=== PATIENT | female | born 1970 | race Two or more races ===

== ENCOUNTER → 2023-03-19 13:09 | Outpatient (BNVA) | payer OTHER, SELFPAY | PROVIDERS: PCP Physician Assistant Medical; Visit Provider Internal Medicine Nephrology | DX: N17.9 Acute kidney failure, unspecified (principal) | CPT/HCPCS: 99202 ==

== ENCOUNTER 2023-03-19 13:17 | Outpatient (AMB) | payer OTHER, SELFPAY ==
[2023-03-19 14:18] VITALS: BP 122/70; PULSE 68; O2SAT 100; BMI 50.3
--- NOTE | 2023-03-19 14:18 | HO.NEPHOV_ITS ---
HPI HPI Comments History of Present Illness Details I had the privilege of seeing Diana in consultation for her BRAYDON. She has obesity and had undergone to interventions, last being in summer of this year. She is not a diabetic but hypertensive. She had been on multiple medications including CHANTAL-inhibitor. She has lost tremendous amount of weight. Her serum creatinine was 0.9 in August 2021. It had gone up to 1.2 in March 2022. In January of this year it went up to 2.4 and the following month it was 3.0. She has been having diarrhea, even though not watery for the last 6 months. She was taking CHANTAL-inhibitor at that time. Her urine output apparently is normal. She has no hematuria, flank pain or nephrolithiasis. She takes Topamax as well as PPI and chlorthalidone. She has no dizziness, chest pain, shortness of breath, proximal nocturnal dyspnea, orthopnea, pedal edema, nausea or vomiting. She used to take nonsteroidal anti-inflammatory medications but has not taken any over the last 6 months. She denies coronary artery disease, congestive heart failure, carotid stenosis, CVA, CINDY or PAD. She has no new skin rashes, photosensitivity, epistaxis, hematemesis or melena. Her CHANTAL- inhibitor has been discontinued over the last many weeks due to her higher serum creatinine. [facility] Medical History (Updated 03/19/23 @ 14:50 by Wesley Sterling MD) Sleep related hypoxia Severe obesity Seasonal allergies Obstructive sleep apnea Hypertension Depression Chronic osteoarthritis Anxiety Surgical History (Updated 03/19/23 @ 13:32 by Chely Rios MA) H/O section History of tubal ligation Family History (Updated 03/19/23 @ 13:33 by Chely Rios MA) Mother Hypertension Osteoporosis Maternal Grandfather Prostate cancer Social History (Updated 03/19/23 @ 13:32 by Chely Rios MA) Alcohol intake: never Patient Tobacco Use Status: Never used Tobacco Vital Signs 03/19/23 14:18 Height 5 ft 2 in Weight 275 lb 4 oz BMI 50.3 BP 122/70 Blood Pressure Location Lt brachial Position Sitting Pulse 68 Pulse Source Pulse Oximeter Pulse Oximetry (%) 100 Oxygen Delivery Method Room Air Physical Exam Vital Signs: Last Vital Signs Pulse 68 03/19/23 14:18 BP 122/70 03/19/23 14:18 Pulse Ox 100 03/19/23 14:18 Oxygen Delivery Method Room Air 03/19/23 14:18 BMI result Body Mass Index 50.3 Const General: comfortable and no acute distress Orientation/consciousness: patient oriented x3 HEENT Head: Yes normocephalic Mouth: Normal oral and palatal mucosa present Eyes EOM: EOMs intact bilaterally Neck Neck: Yes supple Resp Auscultation: clear to auscultation bilaterally Cardio Jugular venous distension: no JVD Rate: regular rate GI Palpation (GI): Soft to palpation Auscultation: normal bowel sounds General: Yes no CVA tenderness Back/Spine/Pelvis Back: no CVA tenderness Skin General skin exam: no rashes or lesions noted Neuro General: patient oriented x3 and moves all extremities Extrem General: Yes no pedal edema Assessment & Plan Assessment & Plan (1) BRAYDON (acute kidney injury): Code(s): N17.9 - Acute kidney failure, unspecified Plan Diana has had BRAYDON most likely due to tubular injury. Her serum creatinine was 0.9 in August of 2021 but was 1.2 in March of 2022. She had been having steady rise in serum creatinine without any major symptoms. She has episodes of data diarrhea over the last 6 months and she has been taking CHANTAL-inhibitor that time. He may very well be possible that she had altered autoregulation of the kidney with the development of tubular injury. She has no nausea, vomiting or symptoms of heart failure. She has been on PPI as well as chlorthalidone. Her CHANTAL- inhibitor has been discontinued after the high recent serum creatinine. I discontinued her chlorthalidone. Even though she is on Topamax, she denies nephrolithiasis. She denies any other systemic symptoms. I ordered a renal ultrasound along with extensive blood work. She may have to come off PPI. If her serum creatinine does not settle down, she will need a renal biopsy. I did not make any other medication changes today. [employer] Vacuum Tester services were used. All her questions and concerns were addressed. Time spent retrieving data, patient encounter and documentation 47 minutes. Follow-up given in a week time. Orders: Orders Complement C4 Today N17.9 - Acute kidney failure, unspecified Electrolytes Today N17.9 - Acute kidney failure, unspecified Calcium Today N17.9 - Acute kidney failure, unspecified Blood Urea Nitrogen Today N17.9 - Acute kidney failure, unspecified Hepatitis B Surface Antibody Today N17.9 - Acute kidney failure, unspecified Hepatitis B Core Antibody Today N17.9 - Acute kidney failure, unspecified Hepatitis C Antibody Reflex Today N17.9 - Acute kidney failure, unspecified Phosphorus Today N17.9 - Acute kidney failure, unspecified US renal BI Today N17.9 - Acute kidney failure, unspecified Complement C3 Today N17.9 - Acute kidney failure, unspecified Immunofixation Pnl, Serum Today N17.9 - Acute kidney failure, unspecified Phospholipase A2 Receptor Pnl Today N17.9 - Acute kidney failure, unspecified ANCA Vasculitides Today N17.9 - Acute kidney failure, unspecified Anti Glomerular Basement Memb Today N17.9 - Acute kidney failure, unspecified Creatinine Today N17.9 - Acute kidney failure, unspecified Hepatitis B Surface Antigen Today N17.9 - Acute kidney failure, unspecified HIV Ab/Ag Today N17.9 - Acute kidney failure, unspecified Coding Level of Care Code New Pt Level 4 (46055) Diagnoses BRAYDON (acute kidney injury) N17.9 Results Reviewed Nephrology Results: No Data to Display
== END 2023-03-19 14:55 | disposition home or self-care (01) ==
PROVIDERS: PCP Physician Assistant Medical; Visit Provider Internal Medicine Nephrology
DX: N17.9 Acute kidney failure, unspecified (principal)
CPT/HCPCS: 99204

== ENCOUNTER 2023-03-20 09:52 | Outpatient (REF) | payer OTHER, SELFPAY ==
--- NOTE | ~2023-03-20 | US_ITS ---
EXAMINATION: US RETROPERITONEAL LIMITED (RENAL ONLY) CLINICAL INFORMATION: Acute kidney failure.. COMPARISON: None available. TECHNIQUE: Routine grayscale imaging of kidneys was performed. FINDINGS: RIGHT KIDNEY: 9.9 x 2.7 x 4.1 cm (SAG x AP x TRV). The kidney is normal in size, contour, and echogenicity. Renal cortical thickness is normal. No calculi or focal parenchymal lesions. No hydronephrosis. LEFT KIDNEY: 10.5 x 5.9 x 5.4 cm (SAG x AP x TRV). The kidney is normal in size, contour, and echogenicity. Renal cortical thickness is normal. No calculi or focal parenchymal lesions. No hydronephrosis. US/US renal BI IMPRESSION: Unremarkable renal ultrasound.
== END 2023-03-20 09:53 | disposition home or self-care (01) ==
LOC: HO.HMGCX 09:52
PROVIDERS: Visit Provider Internal Medicine Nephrology
DX: N17.9 Acute kidney failure, unspecified (principal)
CPT/HCPCS: 76775

== ENCOUNTER 2023-03-26 09:25 | Outpatient (AMB) | payer OTHER, SELFPAY ==
--- NOTE | 2023-03-26 09:28 | HO.NEPHOV ---
HPI HPI Comments History of Present Illness Details I had the privilege of seeing Diana in follow up of for her BRAYDON. She has obesity and had undergone to interventions, last being in summer of this year. She is not a diabetic but hypertensive. She had been on multiple medications including CHANTAL-inhibitor. She has lost tremendous amount of weight. Her serum creatinine was 0.9 in August 2021. It had gone up to 1.2 in March 2022. In January of this year it went up to 2.4 and the following month it was 3.0. She has been having diarrhea, even though not watery for the last 6 months. She was taking CHANTAL-inhibitor at that time. Her urine output apparently is normal. She has no hematuria, flank pain or nephrolithiasis. She takes Topamax as well as PPI and chlorthalidone. She has no dizziness, chest pain, shortness of breath, proximal nocturnal dyspnea, orthopnea, pedal edema, nausea or vomiting. She used to take nonsteroidal anti-inflammatory medications but has not taken any over the last 6 months. She denies coronary artery disease, congestive heart failure, carotid stenosis, CVA, CINDY or PAD. She has no new skin rashes, photosensitivity, epistaxis, hematemesis or melena. Her CHANTAL-inhibitor has been discontinued over the last many weeks due to her higher serum creatinine. Her serum creatinine is better now [facility] Medical History (Updated 03/19/23 @ 14:50 by Wesley Sterling MD) Sleep related hypoxia Severe obesity Seasonal allergies Obstructive sleep apnea Hypertension Depression Chronic osteoarthritis Anxiety Surgical History H/O section History of tubal ligation Family History Mother Hypertension Osteoporosis Maternal Grandfather Prostate cancer Social History Alcohol intake: never Patient Tobacco Use Status: Never used Tobacco Vital Signs 03/26/23 09:36 Height 5 ft 2 in Weight 271 lb 4 oz BMI 49.6 BP 122/72 Blood Pressure Location Lt brachial Position Sitting Pulse 56 Pulse Source Pulse Oximeter Pulse Oximetry (%) 98 Oxygen Delivery Method Room Air Physical Exam Vital Signs: Last Vital Signs Pulse 56 03/26/23 09:36 BP 122/72 03/26/23 09:36 Pulse Ox 98 03/26/23 09:36 Oxygen Delivery Method Room Air 03/26/23 09:36 BMI result Body Mass Index 49.6 Const General: comfortable and no acute distress Orientation/consciousness: patient oriented x3 HEENT Head: Yes normocephalic Mouth: Normal oral and palatal mucosa present Eyes EOM: EOMs intact bilaterally Neck Neck: Yes supple Resp Auscultation: clear to auscultation bilaterally Cardio Jugular venous distension: no JVD Rate: regular rate GI Palpation (GI): Soft to palpation Auscultation: normal bowel sounds General: Yes no CVA tenderness Back/Spine/Pelvis Back: no CVA tenderness Skin General skin exam: no rashes or lesions noted Neuro General: patient oriented x3 and moves all extremities Extrem General: Yes no pedal edema Assessment & Plan Assessment & Plan (1) BRAYDON (acute kidney injury): Code(s): N17.9 - Acute kidney failure, unspecified Plan Diana has had BRAYDON most likely due to tubular injury which is improving. Her serum creatinine was 0.9 in August of 2021 but was 1.2 in March of 2022. She had been having steady rise in serum creatinine without any major symptoms. She has episodes of diarrhea over the last 6 months and she had been taking CHANTAL-inhibitor that time. She may very well be possible that she had altered autoregulation of the kidney with the development of tubular injury. She has no nausea, vomiting or symptoms of heart failure. She has been on PPI as well as chlorthalidone. Her CHANTAL-inhibitor has been discontinued after the high recent serum creatinine. I discontinued her chlorthalidone at the last visit. Even though she is on Topamax, she denies nephrolithiasis. She denies any other systemic symptoms. Her renal ultrasound was unremarkable. She had extensive blood work, some of them are still pending. She may have to come off PPI. If her serum creatinine does not settle down, she will need a renal biopsy. I did not make any other medication changes today. [employer] Representative services were used. All her questions and concerns were addressed. Follow-up given Orders: Orders Protein Creatinine Ratio, Ur Today N17.9 - Acute kidney failure, unspecified Blood Urea Nitrogen Today N17.9 - Acute kidney failure, unspecified Calcium Today N17.9 - Acute kidney failure, unspecified UA and rflx microscopic Today N17.9 - Acute kidney failure, unspecified Electrolytes Today N17.9 - Acute kidney failure, unspecified Creatinine Today N17.9 - Acute kidney failure, unspecified Coding Level of Care Code Est Pt Level 3 (35433) Diagnoses BRAYDON (acute kidney injury) N17.9 Results Reviewed Nephrology Results: Renal US 03/20/23
[2023-03-26 09:36] VITALS: BP 122/72; PULSE 56; O2SAT 98; BMI 49.6
== END 2023-03-26 09:50 | disposition home or self-care (01) ==
PROVIDERS: PCP Physician Assistant Medical; Visit Provider Internal Medicine Nephrology
DX: N17.9 Acute kidney failure, unspecified (principal)
CPT/HCPCS: 99213

== ENCOUNTER → 2023-03-26 09:25 | Outpatient (BNVA) | payer OTHER, SELFPAY | PROVIDERS: PCP Physician Assistant Medical; Visit Provider Internal Medicine Nephrology | DX: N17.9 Acute kidney failure, unspecified (principal) | CPT/HCPCS: 99212 ==

== ENCOUNTER 2023-05-09 15:38 | Outpatient (REF) | payer OTHER, SELFPAY ==
[2023-05-09 17:51] LABS: Appearance Urine Cloudy; Color Urine Yellow; Glucose Urine UA Negative (Negative); Leukocyte Esterase Urine Negative (Negative); Nitrite Urine Negative (Negative); Specific Gravity - Urine 1.015 (1.005-1.025); Urine Blood Negative (Negative); Urine Ketones Negative (Negative); Urine Protein Negative (Neg-Trace)
[2023-05-09 17:57] LABS: Creatinine Urine 128.25 mg/dL; Total Protein Urine Random 13 mg/dL (<12)
[2023-05-09 17:58] LABS: Anion Gap 12 (12-20); Blood Urea Nitrogen 16 mg/dL (9-16); Calcium 9.4 mg/dL (8.4-10.2); Carbon Dioxide 26 mmol/L (22-29); Chloride 106 mmol/L (96-108); Estimated Glomerular Filt Rate 46; Sodium 141 mmol/L (135-145)
== END 2023-05-09 15:39 | disposition home or self-care (01) ==
LOC: HO.HKASLDS 15:38
PROVIDERS: Visit Provider Internal Medicine Nephrology
DX: N17.9 Acute kidney failure, unspecified (principal)
CPT/HCPCS: 36415; 80051; 81003; 82310; 82565; 82570; 84156; 84520

== ENCOUNTER 2023-05-15 10:07 | Outpatient (AMB) | payer OTHER, SELFPAY ==
[2023-05-15 10:11] VITALS: BP 128/76; PULSE 60; O2SAT 99; BMI 48.7
--- NOTE | 2023-05-15 10:11 | A.OFFVIS_ITS ---
Intake Vital Signs 05/15/23 10:11 Height 5 ft 2 in Weight 266 lb 4 oz BMI 48.7 BP 128/76 Blood Pressure Location Lt brachial Position Sitting Pulse 60 Pulse Source Pulse Oximeter Pulse Oximetry (%) 99 Oxygen Delivery Method Room Air Intake Visit Reasons: 6w follow up/ Confirmed Data Center Technician Required: Yes Data Center Technician Language: Teacher Of [employer] Name: Kurtis([id number]) Allergies diphenhydramine [Benadryl] Allergy (Unknown, Verified 05/15/23 10:18) SOB From BENADRYL Adverse Reaction (Severe, Uncoded 05/15/23 10:18) AGITATION HPI HPI Comments History of Present Illness Details I had the privilege of seeing Diana in follow up of for her BRAYDON. She has obesity and had undergone to interventions, last being in summer of this year. She is not a diabetic but hypertensive. She had been on multiple medications including CHANTAL-inhibitor. She has lost tremendous amount of weight. Her serum creatinine was 0.9 in August 2021. It had gone up to 1.2 in March 2022. In January of this year it went up to 2.4 and the following month it was 3.0. She had been having diarrhea, even though not watery for the last 6 months. She was taking CHANTAL-inhibitor at that time. Her urine output apparently is normal. She has no hematuria, flank pain or nephrolithiasis. She has no dizziness, chest pain, shortness of breath, proximal nocturnal dyspnea, orthopnea, pedal edema, nausea or vomiting. She used to take nonsteroidal anti- inflammatory medications but has not taken any over the last 6 months. She denies coronary artery disease, congestive heart failure, carotid stenosis, CVA, CINDY or PAD. She has no new skin rashes, photosensitivity, epistaxis, hematemesis or melena. Her CHANTAL-inhibitor has been discontinued due to her higher serum creatinine. Her serum creatinine is better now. She had edema and was given diuretics. Her repeat lab work showed hypokalemia and was given potassium replacement. She feels well. [facility] Medical History (Updated 05/15/23 @ 11:50 by Wesley Sterling MD) Sleep related hypoxia Severe obesity Seasonal allergies Obstructive sleep apnea Hypertension Depression Chronic osteoarthritis Anxiety Surgical History H/O section History of tubal ligation Family History Mother Hypertension Osteoporosis Maternal Grandfather Prostate cancer Social History Alcohol intake: never Patient Tobacco Use Status: Never used Tobacco Physical Exam Vital Signs: Last Vital Signs Pulse 60 05/15/23 10:11 BP 128/76 05/15/23 10:11 Pulse Ox 99 05/15/23 10:11 Oxygen Delivery Method Room Air 05/15/23 10:11 BMI result Body Mass Index 48.7 Const General: comfortable and no acute distress Orientation/consciousness: patient oriented x3 HEENT Head: Yes normocephalic Mouth: Normal oral and palatal mucosa present Eyes EOM: EOMs intact bilaterally Neck Neck: Yes supple Resp Auscultation: clear to auscultation bilaterally Cardio Jugular venous distension: no JVD Rate: regular rate GI Palpation (GI): Soft to palpation Auscultation: normal bowel sounds General: Yes no CVA tenderness Back/Spine/Pelvis Back: no CVA tenderness Skin General skin exam: no rashes or lesions noted Neuro General: patient oriented x3 and moves all extremities Assessment & Plan Assessment & Plan (1) BRAYDON (acute kidney injury): Code(s): N17.9 - Acute kidney failure, unspecified (2) Hypertension: Code(s): I10 - Essential (primary) hypertension Qualifiers: Hypertension type: primary hypertension Qualified Code(s): I10 - Essential (primary) hypertension Plan Diana has had BRAYDON most likely due to tubular injury which has improved and is stable. Her serum creatinine was 0.9 in August of 2021 but was 1.2 in March of 2022. She had been having steady rise in serum creatinine without any major symptoms. She has episodes of diarrhea over the last 6 months and she had been taking CHANTAL-inhibitor that time. She may very well be possible that she had altered autoregulation of the kidney with the development of tubular injury. She has no nausea, vomiting or symptoms of heart failure. Her CHANTAL-inhibitor has been discontinued after the high recent serum creatinine. Even though she is on Topamax, she denies nephrolithiasis. She denies any other systemic symptoms. Her renal ultrasound was unremarkable. She had edema and took diuretics. Her edema is better. She had hypokalemia and potassium replacement was given. She has trace of edema now which may be from her amlodipine. If her serum creatinine does not settle down, she will need a renal biopsy. I will consider switching her from amlodipine if her edema persists. I did not make any other medication changes today. Data Center Technician services were used. All her questions and concerns were addressed. Follow-up given Orders: Orders Creatinine Today I10 - Essential (primary) hypertension, N17.9 - Acute kidney failure, unspecified Electrolytes Today I10 - Essential (primary) hypertension, N17.9 - Acute kidney failure, unspecified Protein Creatinine Ratio, Ur Today I10 - Essential (primary) hypertension, N17.9 - Acute kidney failure, unspecified Blood Urea Nitrogen Today I10 - Essential (primary) hypertension, N17.9 - Acute kidney failure, unspecified Coding Level of Care Code Est Pt Level 3 (48196) Diagnoses BRAYDON (acute kidney injury) N17.9 Primary hypertension I10 Hypertension type: primary hypertension
== END 2023-05-15 10:39 | disposition home or self-care (01) ==
PROVIDERS: PCP Physician Assistant Medical; Visit Provider Internal Medicine Nephrology
DX: N17.9 Acute kidney failure, unspecified (principal); I10 Essential (primary) hypertension
CPT/HCPCS: 99213

== ENCOUNTER → 2023-05-15 10:07 | Outpatient (BNVA) | payer OTHER, SELFPAY | PROVIDERS: PCP Physician Assistant Medical; Visit Provider Internal Medicine Nephrology | DX: N17.9 Acute kidney failure, unspecified (principal); I10 Essential (primary) hypertension | CPT/HCPCS: 99212 ==

== ENCOUNTER 2023-06-05 10:57 | Outpatient (REF) | payer OTHER, SELFPAY ==
[2023-06-05 15:46] LABS: Anion Gap 11 (12-20); Blood Urea Nitrogen 10 mg/dL (9-16); Carbon Dioxide 27 mmol/L (22-29); Chloride 105 mmol/L (96-108); Estimated Glomerular Filt Rate 47; Sodium 140 mmol/L (135-145)
== END 2023-06-05 10:58 | disposition home or self-care (01) ==
LOC: HO.HKASLDS 10:57
PROVIDERS: Visit Provider Internal Medicine Nephrology
DX: I10 Essential (primary) hypertension (principal); N17.9 Acute kidney failure, unspecified
CPT/HCPCS: 36415; 80051; 82565; 84520

== ENCOUNTER 2023-07-03 10:48 | Outpatient (AMB) | payer OTHER, SELFPAY ==
[2023-07-03 11:21] VITALS: BP 122/82; BMI 48.0
--- NOTE | 2023-07-03 11:21 | HO.NEPHOV_ITS ---
HPI HPI Comments History of Present Illness Details I had the privilege of seeing Diana in follow up of for her CKD. She has obesity and had undergone to interventions, last being in summer of this year. She is not a diabetic but hypertensive. She had been on multiple medications including CHANTAL-inhibitor. She has lost tremendous amount of weight. Her serum creatinine was 0.9 in August 2021. It had gone up to 1.2 in March 2022. In January of this year it went up to 2.4 and the following month it was 3.0. She had been having diarrhea, even though not watery for the last 6 months. She was taking CHANTAL-inhibitor at that time. Her urine output apparently is normal. She has no hematuria, flank pain or nephrolithiasis. She has no dizziness, chest pain, shortness of breath, proximal nocturnal dyspnea, orthopnea, pedal edema, nausea or vomiting. She used to take nonsteroidal anti- inflammatory medications but has not taken any over the last 6 months. She denies coronary artery disease, congestive heart failure, carotid stenosis, CVA, CINDY or PAD. She has no new skin rashes, photosensitivity, epistaxis, hematemesis or melena. Her CHANTAL-inhibitor has been discontinued due to her higher serum creatinine. Her serum creatinine is better now. She had edema and was given diuretics. Her repeat lab work showed hypokalemia and was given potassium replacement. She feels well. [facility] Medical History (Updated 07/03/23 @ 11:30 by Wesley Sterling MD) Sleep related hypoxia Severe obesity Seasonal allergies Obstructive sleep apnea Hypertension Depression Chronic osteoarthritis Anxiety Surgical History H/O section History of tubal ligation Family History Mother Hypertension Osteoporosis Maternal Grandfather Prostate cancer Social History Alcohol intake: never Patient Tobacco Use Status: Never used Tobacco Vital Signs 07/03/23 11:21 Height 5 ft 2 in Weight 262 lb 8 oz BMI 48.0 BP 122/82 Blood Pressure Location Rt radial Position Sitting Physical Exam Vital Signs: Last Vital Signs BP 122/82 07/03/23 11:21 BMI result Body Mass Index 48.0 Const General: comfortable and no acute distress Orientation/consciousness: patient oriented x3 HEENT Head: Yes normocephalic Mouth: Normal oral and palatal mucosa present Eyes EOM: EOMs intact bilaterally Neck Neck: Yes supple Resp Auscultation: clear to auscultation bilaterally Cardio Jugular venous distension: no JVD Rate: regular rate GI Palpation (GI): Soft to palpation Auscultation: normal bowel sounds General: Yes no CVA tenderness Back/Spine/Pelvis Back: no CVA tenderness Skin General skin exam: no rashes or lesions noted Neuro General: patient oriented x3 and moves all extremities Extrem General: Yes no pedal edema Assessment & Plan Assessment & Plan (1) Hypertension: Code(s): I10 - Essential (primary) hypertension Qualifiers: Hypertension type: primary hypertension Qualified Code(s): I10 - Essential (primary) hypertension (2) CKD (chronic kidney disease) stage 3, GFR 30-59 ml/min: Code(s): N18.30 - Chronic kidney disease, stage 3 unspecified Qualifiers: Chronic kidney disease stage 3 subtype: stage 3a (GFR 45-59) Qualified Code(s): N18.31 - Chronic kidney disease, stage 3a Jony Ortiz has had BRAYDON most likely due to tubular injury which has improved and is stable. Her serum creatinine was 0.9 in August of 2021 but was 1.2 in March of 2022. Thats her new baseline now. She had been having steady rise in serum creatinine without any major symptoms. She has no nausea, vomiting or symptoms of heart failure. Her CHANTAL-inhibitor has been discontinued after the high recent serum creatinine. Even though she is on Topamax, she denies nephrolithiasis. She denies any other systemic symptoms. Her renal ultrasound was unremarkable. She had edema and took diuretics. Her edema has resolved. She had hypokalemia and potassium replacement was given. I did not make any other medication changes today. Energy Assistant services were used. All her questions and concerns were addressed. Follow-up given Orders: Orders Electrolytes Today I10 - Essential (primary) hypertension, N18.30 - Chronic kidney disease, stage 3 unspecified Creatinine Today I10 - Essential (primary) hypertension, N18.30 - Chronic kidney disease, stage 3 unspecified Blood Urea Nitrogen Today I10 - Essential (primary) hypertension, N18.30 - Chronic kidney disease, stage 3 unspecified Coding Level of Care Code Est Pt Level 3 (23439) Diagnoses Primary hypertension I10 Hypertension type: primary hypertension Stage 3a chronic kidney disease N18.31 Chronic kidney disease stage 3 subtype: stage 3a (GFR 45-59) Results Reviewed Nephrology Results: Sodium 140 mmol/L (135-145) 06/05/23 Potassium 3.0 mmol/L (3.3-5.1) L 06/05/23 Chloride 105 mmol/L (96-108) 06/05/23 Carbon Dioxide 27 mmol/L (22-29) 06/05/23 BUN 10 mg/dL (9-16) 06/05/23 Creatinine 1.20 mg/dL (0.5-1.4) 06/05/23 Calcium 9.4 mg/dL (8.4-10.2) 05/09/23 Urine Protein Negative mg/dL (Neg-Trace) 05/09/23 Urine Creatinine 128.25 mg/dL 05/09/23 Protein/Creatinin Ratio 0.10 (<0.2) 05/09/23 Renal US 03/20/23
== END 2023-07-03 11:39 | disposition home or self-care (01) ==
PROVIDERS: PCP Physician Assistant Medical; Visit Provider Internal Medicine Nephrology
DX: I10 Essential (primary) hypertension (principal); N18.31 Chronic kidney disease, stage 3a
CPT/HCPCS: 99213

== ENCOUNTER → 2023-07-03 10:48 | Outpatient (BNVA) | payer OTHER, SELFPAY | PROVIDERS: PCP Physician Assistant Medical; Visit Provider Internal Medicine Nephrology | DX: I12.9 Hypertensive chronic kidney disease with stage 1 through stage 4 chronic kidney disease, or unspecified chronic kidney disease (principal); N18.31 Chronic kidney disease, stage 3a | CPT/HCPCS: 99212 ==

== ENCOUNTER 2023-09-26 10:48 | Outpatient (REF) | payer OTHER, SELFPAY ==
[2023-09-26 18:31] LABS: Anion Gap 10 (12-20); Blood Urea Nitrogen 17 mg/dL (9-16); Calcium 9.8 mg/dL (8.4-10.2); Carbon Dioxide 25 mmol/L (22-29); Chloride 111 mmol/L (96-108); Estimated Glomerular Filt Rate 43; Phosphorus 3.4 mg/dL (2.7-4.5); Potassium 3.8 mmol/L (3.3-5.1); Sodium 142 mmol/L (135-145)
[2023-09-26 18:56] LABS: Protein/Creatinine Ratio, Ur 0.06 (<0.2); Total Protein Urine Random 14 mg/dL (<12)
[2023-09-27 03:54] LABS: HBc Num1 0.16 S/CO (0.00-0.79); HBsAGNum1 0.26 S/CO (0.00-0.99); HIV AB/AG Nonreactive (Nonreactive); HIV Num 1 0.05 S/CO (0.00-0.99); Hepatitis B Core Antibody Nonreactive (Nonreactive); Hepatitis B Surface Antigen Negative (Negative); ~HepC Num1 0.22 S/CO (0.00-0.79); ~Hepatitis B Surface Antibody NONREACTIVE (Nonreactive); ~Hepatitis C Antibody Nonreactive (Nonreactive)
[2023-09-27 21:13] LABS: Anti Glomerular Basement Memb <1.0 AI; Myeloperoxidase Antibody <1.0 AI; Proteinase 3 PR3 Antibodies <1.0 AI
[2023-09-27 22:18] LABS: Complement C3 129 mg/dL (83-193)
[2023-10-01 22:08] LABS: IgA 240 mg/dL (47-310); IgG 1488 mg/dL (600-1640); IgM 107 mg/dL (50-300)
[2023-10-04 21:44] LABS: Phospholipase A2 IgG ELISA <4 RU/mL; Phospholipase A2 IgG IFA NEGATIVE (NEGATIVE)
== END 2023-09-26 10:49 | disposition home or self-care (01) ==
LOC: HO.HKASLDS 10:48
PROVIDERS: Visit Provider Internal Medicine Nephrology
DX: N17.9 Acute kidney failure, unspecified (principal); I12.9 Hypertensive chronic kidney disease with stage 1 through stage 4 chronic kidney disease, or unspecified chronic kidney disease; N18.30 Chronic kidney disease, stage 3 unspecified
CPT/HCPCS: 36415; 80051; 82310; 82565; 82570; 82784; 83520; 84100; 84156; 84520; 86021; 86160; 86255; 86334; 86704; 86706; 86803; 87340; 87389

== ENCOUNTER 2023-10-02 10:27 | Outpatient (AMB) | payer OTHER, SELFPAY ==
[2023-10-02 10:47] VITALS: BP 116/70; PULSE 50; O2SAT 100; BMI 43.8
--- NOTE | 2023-10-02 10:47 | HO.NEPHOV ---
Vital Signs 10/02/23 10:47 Height 5 ft 2 in Weight 239 lb 6 oz BMI 43.8 BP 116/70 Blood Pressure Location Lt brachial Position Sitting Pulse 50 Pulse Source Pulse Oximeter Pulse Oximetry (%) 100 Oxygen Delivery Method Room Air Intake Visit Reasons: 3 mon follow up/ Conf Deputy Coroner Investigator Required: Yes Deputy Coroner Investigator Services: Deputy Coroner Investigator Present Deputy Coroner Investigator Name: Ritika [id number] Accompanied by: Self / Same As Patient Allergies diphenhydramine [Benadryl] Allergy (Unknown, Verified 10/02/23 10:50) SOB From BENADRYL Adverse Reaction (Severe, Uncoded 05/15/23 10:18) AGITATION HPI Comments Details: I had the privilege of seeing Diana in follow up of for her CKD. She has obesity and had undergone to interventions. She is not a diabetic but hypertensive. She has lost tremendous amount of weight. Her serum creatinine was 0.9 in August 2021. It had gone up to 1.2 in March 2022. In January of this year it went up to 2.4 and the following month it was 3.0 which has improved to 1.3 and is stable. Her urine output apparently is normal. She has no hematuria, flank pain or nephrolithiasis. She has no dizziness, chest pain, shortness of breath, proximal nocturnal dyspnea, orthopnea, pedal edema, nausea or vomiting. She used to take nonsteroidal anti-inflammatory medications but has not taken any over the last 6 months. She denies coronary artery disease, congestive heart failure, carotid stenosis, CVA, CINDY or PAD. She has no new skin rashes, photosensitivity, epistaxis, hematemesis or melena. She feels well. [facility] Medical History (Updated 07/03/23 @ 11:30 by Wesley Sterling MD) Sleep related hypoxia Severe obesity Seasonal allergies Obstructive sleep apnea Hypertension Depression Chronic osteoarthritis Anxiety Surgical History H/O section History of tubal ligation Family History Mother Hypertension Osteoporosis Maternal Grandfather Prostate cancer Social History Alcohol intake: never Patient Tobacco Use Status: Never used Tobacco Physical Exam Vital Signs: Last Vital Signs Pulse 50 10/02/23 10:47 BP 116/70 10/02/23 10:47 Pulse Ox 100 10/02/23 10:47 Oxygen Delivery Method Room Air 10/02/23 10:47 BMI result Body Mass Index 43.8 Const General: comfortable and no acute distress Orientation/consciousness: patient oriented x3 HEENT Head: Yes normocephalic Mouth: Normal oral and palatal mucosa present Eyes EOM: EOMs intact bilaterally Neck Neck: Yes supple Resp Auscultation: clear to auscultation bilaterally Cardio Jugular venous distension: no JVD Rate: regular rate GI Palpation (GI): Soft to palpation Auscultation: normal bowel sounds General: Yes no CVA tenderness Back/Spine/Pelvis Back: no CVA tenderness Skin General skin exam: no rashes or lesions noted Neuro General: patient oriented x3 and moves all extremities Extrem General: Yes no pedal edema Results Reviewed Nephrology Results: Sodium 142 mmol/L (135-145) 09/26/23 Potassium 3.8 mmol/L (3.3-5.1) 09/26/23 Chloride 111 mmol/L (96-108) H 09/26/23 Carbon Dioxide 25 mmol/L (22-29) 09/26/23 BUN 17 mg/dL (9-16) H 09/26/23 Creatinine 1.31 mg/dL (0.5-1.4) 09/26/23 Calcium 9.8 mg/dL (8.4-10.2) 09/26/23 Phosphorus 3.4 mg/dL (2.7-4.5) 09/26/23 Urine Protein Negative mg/dL (Neg-Trace) 05/09/23 Urine Creatinine 224.66 mg/dL 09/26/23 Protein/Creatinin Ratio 0.06 (<0.2) 09/26/23 Renal US 03/20/23 Assessment & Plan Assessment & Plan (1) CKD (chronic kidney disease) stage 3, GFR 30-59 ml/min: Code(s): N18.30 - Chronic kidney disease, stage 3 unspecified Category: Medical Qualifiers: Chronic kidney disease stage 3 subtype: stage 3a (GFR 45-59) Qualified Code(s): N18.31 - Chronic kidney disease, stage 3a (2) Hypertension: Code(s): I10 - Essential (primary) hypertension Category: Medical Qualifiers: Hypertension type: primary hypertension Qualified Code(s): I10 - Essential (primary) hypertension Plan Her renal functions are stable. Her CHANTAL-inhibitor has been discontinued after the high recent serum creatinine. Even though she is on Topamax, she denies nephrolithiasis. She denies any other systemic symptoms. Her renal ultrasound was unremarkable. Her BP is at goal. I did not make any other medication changes today. Deputy Coroner Investigator services were used. All her questions and concerns were addressed. Follow-up given Coding Level of Care Code Est Pt Level 4 (25113) Diagnoses Stage 3a chronic kidney disease N18.31 Chronic kidney disease stage 3 subtype: stage 3a (GFR 45-59) Primary hypertension I10 Hypertension type: primary hypertension
== END 2023-10-02 11:04 | disposition home or self-care (01) ==
PROVIDERS: PCP Physician Assistant Medical; Visit Provider Internal Medicine Nephrology
DX: N18.31 Chronic kidney disease, stage 3a (principal); I10 Essential (primary) hypertension
CPT/HCPCS: 99214

== ENCOUNTER → 2023-10-02 10:27 | Outpatient (BNVA) | payer OTHER, SELFPAY | PROVIDERS: PCP Physician Assistant Medical; Visit Provider Internal Medicine Nephrology | DX: I10 Essential (primary) hypertension (principal); N18.31 Chronic kidney disease, stage 3a | CPT/HCPCS: 99212 ==

== ENCOUNTER 2024-01-16 14:28 | Outpatient (REF) | payer OTHER, SELFPAY ==
[2024-01-16 18:34] LABS: Anion Gap 12 (12-20); Blood Urea Nitrogen 17 mg/dL (9-16); Carbon Dioxide 27 mmol/L (22-29); Chloride 106 mmol/L (96-108); Estimated Glomerular Filt Rate 56; Potassium 4.3 mmol/L (3.3-5.1); Sodium 141 mmol/L (135-145)
== END 2024-01-16 14:29 | disposition home or self-care (01) ==
LOC: HO.HKASLDS 14:28
PROVIDERS: Visit Provider Internal Medicine Nephrology
DX: N17.9 Acute kidney failure, unspecified (principal)
CPT/HCPCS: 36415; 80051; 82565; 84520

== ENCOUNTER 2024-02-14 12:57 | Outpatient (AMB) | payer OTHER, SELFPAY ==
--- NOTE | 2024-02-14 13:33 | HO.NEPHOV_ITS ---
Vital Signs 02/14/24 13:34 Height 5 ft 2 in Weight 245 lb 2 oz BMI 44.8 BP 122/80 Blood Pressure Location Lt radial Intake Visit Reasons: 4 mon follow up- Conf Director Trading Required: Yes Director Trading Language: Warehouse Worker 2Nd Shift Services: Director Trading Present Director Trading Name: Sisi [id number] Accompanied by: Self / Same As Patient Allergies diphenhydramine [Benadryl] Allergy (Unknown, Verified 02/14/24 13:33) SOB From BENADRYL Adverse Reaction (Severe, Uncoded 05/15/23 10:18) AGITATION HPI Comments Details: Diana was seenin follow up of for her CKD. She has obesity and had undergone to interventions. She is not a diabetic but hypertensive. She has lost tremendous amount of weight. Her serum creatinine was 0.9 in August 2021. It had gone up to 1.2 in March 2022. In January of 2023 it went up to 2.4 and the following month it was 3.0 which has improved to 1.3 and is stable. Her urine output apparently is normal. She has no hematuria, flank pain or nephrolithiasis. She has no dizziness, chest pain, shortness of breath, proximal nocturnal dyspnea, orthopnea, pedal edema, nausea or vomiting. She used to take nonsteroidal anti-inflammatory medications but has not taken any over the last 6 months. She denies coronary artery disease, congestive heart failure, carotid stenosis, CVA, CINDY or PAD. She has no new skin rashes, photosensitivity, epistaxis, hematemesis or melena. She feels well. [facility] Medical History (Updated 07/03/23 @ 11:30 by Wesley Sterling MD) Sleep related hypoxia Severe obesity Seasonal allergies Obstructive sleep apnea Hypertension Depression Chronic osteoarthritis Anxiety Surgical History H/O section History of tubal ligation Family History Mother Hypertension Osteoporosis Maternal Grandfather Prostate cancer Social History Alcohol intake: never Patient Tobacco Use Status: Never used Tobacco Review of Systems Const All systems reviewed & are unremarkable except as noted in HPI and below Physical Exam Vital Signs: Last Vital Signs BP 122/80 02/14/24 13:34 BMI result Body Mass Index 44.8 Const General: comfortable and no acute distress Orientation/consciousness: patient oriented x3 HEENT Head: Yes normocephalic Mouth: Normal oral and palatal mucosa present Eyes EOM: EOMs intact bilaterally Neck Neck: Yes supple Resp Auscultation: clear to auscultation bilaterally Cardio Jugular venous distension: no JVD Rate: regular rate GI Palpation (GI): Soft to palpation Auscultation: normal bowel sounds General: Yes no CVA tenderness Back/Spine/Pelvis Back: no CVA tenderness Skin General skin exam: no rashes or lesions noted Neuro General: patient oriented x3 and moves all extremities Extrem General: Yes no pedal edema Results Reviewed Nephrology Results: Sodium 141 mmol/L (135-145) 01/16/24 Potassium 4.3 mmol/L (3.3-5.1) 01/16/24 Chloride 106 mmol/L (96-108) 01/16/24 Carbon Dioxide 27 mmol/L (22-29) 01/16/24 BUN 17 mg/dL (9-16) H 01/16/24 Creatinine 1.04 mg/dL (0.5-1.4) 01/16/24 Calcium 9.8 mg/dL (8.4-10.2) 09/26/23 Phosphorus 3.4 mg/dL (2.7-4.5) 09/26/23 Urine Protein Negative mg/dL (Neg-Trace) 05/09/23 Urine Creatinine 224.66 mg/dL 09/26/23 Protein/Creatinin Ratio 0.06 (<0.2) 09/26/23 Renal US 03/20/23 Assessment & Plan Assessment & Plan (1) CKD (chronic kidney disease) stage 3, GFR 30-59 ml/min: Code(s): N18.30 - Chronic kidney disease, stage 3 unspecified Category: Medical Qualifiers: Chronic kidney disease stage 3 subtype: stage 3a (GFR 45-59) Qualified Code(s): N18.31 - Chronic kidney disease, stage 3a (2) Hypertension: Code(s): I10 - Essential (primary) hypertension Category: Medical Qualifiers: Hypertension type: primary hypertension Qualified Code(s): I10 - Essential (primary) hypertension Plan Her renal functions are stable. Her CHANTAL-inhibitor has been discontinued in the past after she had high serum creatinine. Even though she is on Topamax, she denies nephrolithiasis. She denies any other systemic symptoms. Her renal ultrasound was unremarkable. Her BP is at goal. I did not make any other medi cation changes today. Director Trading services were used. All her questions and concerns were addressed. Follow-up given Orders: Orders Creatinine 8 Months I10 - Essential (primary) hypertension, N18.31 - Chronic kidney disease, stage 3a Blood Urea Nitrogen 8 Months I10 - Essential (primary) hypertension, N18.31 - Chronic kidney disease, stage 3a Electrolytes 8 Months I10 - Essential (primary) hypertension, N18.31 - Chronic kidney disease, stage 3a Coding Level of Care Code Est Pt Level 4 (07891) Diagnoses Stage 3a chronic kidney disease N18.31 Chronic kidney disease stage 3 subtype: stage 3a (GFR 45-59) Primary hypertension I10 Hypertension type: primary hypertension
[2024-02-14 13:34] VITALS: BP 122/80; BMI 44.8
== END 2024-02-14 13:43 | disposition home or self-care (01) ==
LOC: HO.HKAS 12:58
PROVIDERS: PCP Physician Assistant Medical; Visit Provider Internal Medicine Nephrology
DX: N18.31 Chronic kidney disease, stage 3a (principal); I10 Essential (primary) hypertension
CPT/HCPCS: 99214

== ENCOUNTER → 2024-02-14 12:57 | Outpatient (BNVA) | payer OTHER, SELFPAY | PROVIDERS: PCP Physician Assistant Medical; Visit Provider Internal Medicine Nephrology | DX: I12.9 Hypertensive chronic kidney disease with stage 1 through stage 4 chronic kidney disease, or unspecified chronic kidney disease (principal); N18.31 Chronic kidney disease, stage 3a | CPT/HCPCS: 99212 ==

== ENCOUNTER 2024-09-17 12:40 | Outpatient (REF) | payer OTHER, SELFPAY ==
--- OUTSIDE RECORDS SUMMARY | 2024-09-17 14:09 | XMS_ITS | Clinical Summary ---
Author Organization [address] [place] [address] Address [address] [place] [address] Phone Care Team Providers Care Chart Writer Name Role Phone Gurwinder Mclean MD Primary Care Provider [phone] Allergies Active Allergy Reactions Criticality Noted Date Comments Diphenhydramine Hcl 12/03/2017 Medications LISINOPRIL ORAL Take by mouth. Active loperamide (IMODIUM) 2 mg capsule Take 1 Capsule by mouth 4 times daily as needed for Diarrhea for up to 20 doses. 024 Active pantoprazole (PROTONIX) 40 mg EC tablet TAKE 1 TABLET BY MOUTH ONCE DAILY 023 Active cholecalciferol (VITAMIN D-3) 50 mcg (2,000 unit) tablet TAKE 1 TABLET BY MOUTH ONCE DAILY 023 Active WHEAT DEXTRIN ORAL Take 4 g by mouth daily. 023 Active buPROPion XL (WELLBUTRIN XL) 300 mg 24 hr tabletIndication s:Morbid (severe) obesity due to excess calories (CMS/[facility] V24, CMS/[facility] V28) TAKE 1 TABLET BY MOUTH EVERY MORNING 30 tablet 5 024 Active acetaminophen (TYLENOL 8 HOUR) 650 mg 8 hr tablet Take 2 tablets (1,300 mg total) by mouth every 8 (eight) hours if needed. for pain 024 Active albuterol 2.5 mg /3 mL (0.083 %) nebulizer solution Take 3 mL (2.5 mg total) by nebulization if needed. 024 Active amLODIPine (NORVASC) 10 mg tablet Take 1 tablet (10 mg total) by mouth 1 (one) time each day. Active Symbicort 80-4.5 mcg/actuation inhaler Inhale 2 puffs by mouth if needed. 024 Active carvediloL (COREG) 25 mg tablet Take 1 tablet (25 mg total) by mouth 2 (two) times a day with meals. Active cetirizine (ZyrTEC) 10 mg tablet Take 1 tablet (10 mg total) by mouth 1 (one) time each day. 024 Active clonazePAM (KlonoPIN) 1 mg tablet Take 1 tablet (1 mg total) by mouth 1 (one) time each day. Max Daily Amount: 1 mg 024 Active docusate sodium (COLACE) 100 mg capsule Take 1 capsule (100 mg total) by mouth if needed for constipation. 024 Active escitalopram (LEXAPRO) 20 mg tablet Take 1 tablet (20 mg total) by mouth 1 (one) time each day in the morning. Active fluconazole (DIFLUCAN) 150 mg tablet Take 1 tablet (150 mg total) by mouth 1 (one) time. 024 Active hydrOXYzine HCL (ATARAX) 50 mg tablet Take 10 mg by mouth 1 (one) time. 024 Active hydrocortisone (ANUSOL-HC) 2.5 % rectal cream Insert 2.5 Applications into the rectum 2 (two) times a day. 024 Active zinc gluconate 50 mg tabletIndication s:Postoperative malabsorption Take 1 tablet (50 mg total) by mouth 1 (one) time each day. 30 tablet 025 2025 Active semaglutide (Wegovy) 0.25 mg/0.5 mL injection penIndications:C lass 3 severe obesity due to excess calories with serious comorbidity and body mass index (BMI) of 40.0 to 44.9 in adult ([facility] V24, [facility] V28) Inject 0.25 mg under the skin every 7 (seven) days. 4 mL 1 025 Active phentermine 30 mg capsuleIndicatio ns:Class 3 severe obesity due to excess calories with serious comorbidity and body mass index (BMI) of 40.0 to 44.9 in adult ([facility] V24, [facility] V28) Take 1 capsule (30 mg total) by mouth 1 (one) time each day before breakfast. Max Daily Amount: 30 mg 30 each 2 025 2024 Discontinued phentermine 37.5 mg capsuleIndicatio ns:Class 3 severe obesity due to excess calories with serious comorbidity and body mass index (BMI) of 40.0 to 44.9 in adult ([facility] V24, [facility] V28) Take 1 capsule (37.5 mg total) by mouth 1 (one) time each day before breakfast. Max Daily Amount: 37.5 mg 30 each 025 2024 Discontinued(A lternate therapy) Active Problems Problem Noted Date Diagnosed Date NICOLAS on CPAP 01/21/2024 Depression 01/21/2024 Class 3 severe obesity due t o excess calories with body mass index (BMI) of 40.0 to 44.9 in adult ([facility] V24, [facility] V28) 01/21/2024 Intestinal malabsorption following gastrectomy 0 12/26/2018 Anxiety 09/05/2018 Asthma 09/05/2018 Hypertension 09/05/2018 Osteoarthritis 09/05/2018 Vitamin D deficiency 09/05/2018 TSH elevation 09/05/2018 Encounters Date Type Department Care Team Description 09/09/2024 8:15 AM EDT Office Visit Bariatric Surgery [address] [phone] Ricco Mathur MD Class 3 severe obesity due to excess calories with serious comorbidity and body mass index (BMI) of 40.0 to 44.9 in adult ([facility] V24, [facility] V28) (Primary Dx) 09/03/2024 Telephone Bariatric Surgery [address] [phone] Ricco Mathur MD Advice Only 07/22/2024 1:15 PM EDT Office Visit Bariatric Surgery [address] [phone] Ricco Mathur MD Class 3 severe obesity due to excess calories with serious comorbidity and body mass index (BMI) of 40.0 to 44.9 in adult ([facility] V24, [facility] V28) (Primary Dx) 07/22/2024 Telephone Bariatric Surgery - [place] [address] [place] [address] Ricco Mathur MD Prior auth (ANA) from Last 3 Months Surgical History Surgery Date Site/Laterality Comments SECTION PROCEDURE: HISTORICAL DELIVERY Medical History Medical History Date Comments NICOLAS on CPAP DX:NICOLAS on CPAP Asthma DX:Asthma Depression DX:Depression Anxiety 09/05/2018 DX:Anxiety Hypertension 09/05/2018 DX:Hypertension Osteoarthritis 09/05/2018 DX:Osteoarthriti s Vitamin D deficiency 09/05/2018 DX:Vitamin D deficiency TSH elevation 09/05/2018 DX:TSH elevation Morbid obesity with BMI of 7 0 and over, adult ([facility] V24, CMS/[facility] V28) 12/03/2017 DX:Morbid obesity wit h BMI of 70 and over, adult ([facility]) Family History Medical History Relation Name Comments No Known Problems Father No Known Problems Mother Relation Name Status Comments Father Alive Mother Alive Social History Tobacco Use Types Packs/Day Years Used Date Smoking Tobacco: Never Smokeless Tobacco: Never Alcohol Use Standard Drinks/Week Comments No 0 (1 standard drink = 0.6 oz pur e alcohol) Comments Unknown Sex and Gender Information Value Date Recorded Sex Assigned at Not on file Legal Sex Female 7:57 AM EST Gender Identity Not on file Sexual Orientation Not on file Obstetrics History Last Filed Vital Signs Vital Sign Reading Time Taken Comments Blood Pressure 148/68 09/09/2024 8:21 AM EDT Pulse 50 09/09/2024 8:21 AM EDT Temperature 36.6 ??C (97.8 ??F) 09/09/2024 8:21 AM ED T Respiratory Rate - - Oxygen Saturation - - Inhaled Oxygen Concentration - - Weight 112 kg (248 lb) 09/09/2024 8:21 AM EDT Height 160 cm (5' 3 ) 09/09/2024 8:21 AM EDT Body Mass Index 43.93 09/09/2024 8:21 AM EDT Plan of Treatment Upcoming Encounters Date Type Department Care Team (Late st Contact Info) Description 12/25/2024 8:45 AM EDT Office Visit Bariatric Surgery - [place] [address] [place] [address] Ricco Mathur MD [address] [place] [id number] Health Maintenance Due Date Last Done Comments Breast Cancer Screening 1971 Pneumococcal Vaccine: 50+ Years (1 of 2 - PCV) 1990 Pneumococcal Vaccine: Pediatrics (0 to 5 Years) and At-Risk Patients (6 to 64 Years) (1 of 2 - PCV) 1990 Cervical Cancer Screening: Pap Smear 02/04/1992 Hepatitis B Vaccines (3 of 3 - 19+ 3-dose series) 02/10/2012 12/14/2011, 08/10/2011 Colorectal Cancer Screening: Colonoscopy 03/12/2022 Depression Screening 03/12/2022 HIV Screening 03/12/2022 Hepatitis C Screening 03/12/2022 Social Influencers of Health Screening 03/12/2022 Hypertension/CHF/CAD Annual BMP Blood Test 02/20/2023 02/20/2022 COVID-19 Vaccine ( season) 2023 08/19/2021, 12/08/2020, 07/13/2020, Additional history exists Zoster Vaccines (2 of 3) 01/30/2024 12/05/2023 Cholesterol Screening (Lipid Panel) 02/20/2027 02/20/2022 DTaP,Tdap,and Td Vaccines (3 - Td or Tdap) 09/07/2027 09/06/2017, 08/10/2011 Hepatitis A Vaccines Aged Out 12/14/2011 No long er eligible based on patient's age to complete this topic Influenza Vaccine Completed 03/05/2024, , 03/20/2022, Additional history exists HIB Vaccines Aged Out No longer eligi ble based on patient's age to complete this topic HPV Vaccines Aged Out No longer eligi ble based on patient's age to complete this topic IPV Vaccines Aged Out No longer eligi ble based on patient's age to complete this topic MMR Vaccines Aged Out No longer eligi ble based on patient's age to complete this topic Meningococcal ACWY Vaccine Aged Out N o longer eligible based on patient's age to complete this topic Meningococcal B Vaccine Aged Out No l onger eligible based on patient's age to complete this topic RSV Immunization Patients Under 20 months Aged Out No longer eligible based on patient's age to complete this topic Varicella Vaccines Aged Out No longer eligible based on patient's age to complete this topic Procedures Procedure Name Priority Date/Time Associated Diagnosis Comments ANNUAL BMP BLOOD TEST Routine 02/20/2022 LIPID PANEL Routine 02/20/2022 from Last 3 Months or Most Recently Relevant to Health Maintenance Results * Annual BMP Blood Test (02/20/2022) Annual BMP Blood Test ABSTRACTED Historical Provider HEALTH MAINTENANCE Final Result * (ABNORMAL) Lipid panel (02/20/2022) LDL/HDL Ratio 4 0 - 4 Triglycerides 137 0 - 150 mg/dL Cholesterol 193 0 - 200 mg/dL HDL 50 >=40 mg/dL LDL Cholesterol 116(A) 0 - 100 mg/dL Blood Venous blood specimen / Unknown Historical Provider LAB BLOOD ORDERABLES Anne l Result from Last 3 Months or Most Recently Relevant to Health Maintenance Insurance [employer] Care Teams Chart Writer Relationship Specialty Start Date End Date Gurwinder Mclean MD [address] [place] [id number] PCP - General 06/20/18
[2024-09-17 18:26] LABS: Anion Gap 9 (12-20); Blood Urea Nitrogen 17 mg/dL (9-16); Carbon Dioxide 27 mmol/L (22-29); Chloride 109 mmol/L (96-108); Estimated Glomerular Filt Rate 53; Potassium 4.4 mmol/L (3.3-5.1); Sodium 141 mmol/L (135-145)
== END 2024-09-17 12:41 | disposition home or self-care (01) ==
LOC: HO.HKASLDS 12:40
PROVIDERS: Visit Provider Internal Medicine Nephrology
DX: I12.9 Hypertensive chronic kidney disease with stage 1 through stage 4 chronic kidney disease, or unspecified chronic kidney disease (principal); N18.31 Chronic kidney disease, stage 3a
CPT/HCPCS: 36415; 80051; 82565; 84520

== ENCOUNTER 2024-09-25 13:30 | Outpatient (AMB) | payer OTHER, SELFPAY ==
--- NOTE | 2024-09-25 13:45 | HO.NEPHOV_ITS ---
Vital Signs 09/25/24 13:49 Height 5 ft 2 in Weight 254 lb BMI 46.5 BP 134/80 Blood Pressure Location Lt radial Position Sitting Pulse 68 Pulse Source Pulse Oximeter Pulse Oximetry (%) 98 Oxygen Delivery Method Room Air Intake Visit Reasons: Follow yp 7mo-Conf Retail Loss Prevention Officer Required: Yes Retail Loss Prevention Officer Language: Automatic Car Wash Attendant Services: Retail Loss Prevention Officer Present Retail Loss Prevention Officer Name: Chata [id number] Information Interpreted: clinical only Accompanied by: Self / Same As Patient Allergies diphenhydramine (Benadryl) Allergy (Unknown, Verified 09/25/24 13:49) SOB From BENADRYL Adverse Reaction (Severe, Uncoded 05/15/23 10:18) AGITATION HPI Comments Details: Diana was seen in follow up of for her CKD. She has obesity and had undergone to interventions. She is not a diabetic but hypertensive. She has lost tremendous amount of weight. Her serum creatinine was 0.9 in August 2021. It had gone up to 1.2 in March 2022. In January of 2023 it went up to 2.4 and the following month it was 3.0 which has improved to 1.3 and is stable. Her urine output apparently is normal. She has no hematuria, flank pain or nephrolithiasis. She has no dizziness, chest pain, shortness of breath, proximal nocturnal dyspnea, orthopnea, pedal edema, nausea or vomiting. She used to take nonsteroidal anti-inflammatory medications but has not taken any over the last 6 months. She denies coronary artery disease, congestive heart failure, carotid stenosis, CVA, CINDY or PAD. She has no new skin rashes, photosensitivity, epistaxis, hematemesis or melena. She has been started on Zepbound. She feels well. [facility] Medical History (Updated 07/03/23 @ 11:30 by Wesley Sterling MD) Sleep related hypoxia Severe obesity Seasonal allergies Obstructive sleep apnea Hypertension Depression Chronic osteoarthritis Anxiety Surgical History H/O section History of tubal ligation Family History Mother Hypertension Osteoporosis Maternal Grandfather Prostate cancer Social History Alcohol intake: never Patient Tobacco Use Status: Never used Tobacco Review of Systems Const All systems reviewed & are unremarkable except as noted in HPI and below Physical Exam Const General: comfortable and no acute distress Orientation/consciousness: patient oriented x3 HEENT Head: Yes normocephalic Mouth: Normal oral and palatal mucosa present Eyes EOM: EOMs intact bilaterally Neck Neck: Yes supple Resp Auscultation: clear to auscultation bilaterally Cardio Jugular venous distension: no JVD Rate: regular rate GI Palpation (GI): Soft to palpation Auscultation: normal bowel sounds General: Yes no CVA tenderness Back/Spine/Pelvis Back: no CVA tenderness Skin General skin exam: no rashes or lesions noted Neuro General: patient oriented x3 and moves all extremities Extrem General: Yes no pedal edema Results Reviewed Nephrology Results: Sodium, (135-145) 141 mmol/L 09/17/24 Potassium, (3.3-5.1) 4.4 mmol/L 09/17/24 Chloride, (96-108) 109 mmol/L H 09/17/24 Carbon Dioxide, (22-29) 27 mmol/L 09/17/24 BUN, (9-16) 17 mg/dL H 09/17/24 Creatinine, (0.5-1.4) 1.09 mg/dL 09/17/24 Calcium, (8.4-10.2) 9.8 mg/dL 09/26/23 Phosphorus, (2.7-4.5) 3.4 mg/dL 09/26/23 Urine Protein, (Neg-Trace) Negative mg/dL 05/09/23 Urine Creatinine 224.66 mg/dL 09/26/23 Protein/Creatinin Ratio, (<0.2) 0.06 09/26/23 Renal US 03/20/23 Assessment & Plan Assessment & Plan (1) Hypertension: Code(s): I10 - Essential (primary) hypertension Category: Medical Qualifiers: Hypertension type: primary hypertension Qualified Code(s): I10 - Essential (primary) hypertension (2) CKD (chronic kidney disease) stage 3, GFR 30-59 ml/min: Code(s): N18.30 - Chronic kidney disease, stage 3 unspecified Category: Medical Qualifiers: Chronic kidney disease stage 3 subtype: stage 3a (GFR 45-59) Qualified Code(s): N18.31 - Chronic kidney disease, stage 3a Plan Her renal functions are stable. Her CHANTAL-inhibitor has been discontinued in the past after she had high serum creatinine. Even though she is on Topamax, she denies nephrolithiasis. She denies any other systemic symptoms. Her renal ultrasound was unremarkable. Her BP is at goal. We may have to back off on her BP medications if she loses weight. I did not make any other medication changes today. Retail Loss Prevention Officer services were used. All her questions and concerns were addressed. Follow-up given Orders: Orders Creatinine 6 Months I10 - Essential (primary) hypertension, N18.31 - Chronic kidney disease, stage 3a Blood Urea Nitrogen 6 Months I10 - Essential (primary) hypertension, N18.31 - Chronic kidney disease, stage 3a Electrolytes 6 Months I10 - Essential (primary) hypertension, N18.31 - Chronic kidney disease, stage 3a Coding Level of Care Code Est Pt Level 4 (32789) Diagnoses Primary hypertension I10 Hypertension type: primary hypertension Stage 3a chronic kidney disease N18.31 Chronic kidney disease stage 3 subtype: stage 3a (GFR 45-59)
[2024-09-25 13:49] VITALS: BP 134/80; PULSE 68; O2SAT 98; BMI 46.5
--- OUTSIDE RECORDS SUMMARY | 2024-09-25 14:46 | XMS_ITS | Clinical Summary ---
Author Organization [address] [place] [address] Address [address] [place] [address] Phone Care Team Providers Care Rn Radiation Name Role Phone Gurwinder Mclean MD Primary Care Provider [phone] Allergies Active Allergy Reactions Criticality Noted Date [...] s:Morbid (severe) obesity due to excess calories (CMS/[facility] V24, CMS/[facility] V28) TAKE 1 TABLET BY MOUTH EVERY [...] (BMI) of 40.0 to 44.9 in adult ([facility] V24, [facility] V28) Inject 0.25 mg under the skin every 7 (seven) days. 4 mL 1 025 Active phentermine 30 mg capsuleIndicatio ns:Class 3 severe obesity due to excess calories with serious comorbidity and body mass index (BMI) of 40.0 to 44.9 in adult ([facility] V24, CMS/[facility] V28) Take 1 capsule (30 mg total) by mouth 1 (one) time each day before breakfast. Max Daily Amount: 30 mg 30 each 2 025 2024 Discontinued phentermine 37.5 mg capsuleIndicatio ns:Class 3 severe obesity due to excess calories with serious comorbidity and body mass index (BMI) of 40.0 to 44.9 in adult ([facility] V24, [facility] V28) Take 1 capsule (37.5 mg total) by mouth 1 (one) time each day before breakfast. Max Daily Amount: 37.5 mg 30 each 025 2024 Discontinued(A lternate therapy) Active Problems Problem Noted Date Diagnosed Date NICOLAS on CPAP 01/21/2024 Depression 01/21/2024 Class 3 severe obesity due t o excess calories with body mass index (BMI) of 40.0 to 44.9 in adult ([facility] V24, [facility] V28) 01/21/2024 Intestinal malabsorption following gastrectomy 0 12/26/2018 Anxiety 09/05/2018 Asthma 09/05/2018 Hypertension 09/05/2018 Osteoarthritis 09/05/2018 Vitamin D deficiency 09/05/2018 TSH elevation 09/05/2018 Encounters Date Type Department Care Team Description 09/09/2024 8:15 AM EDT Office Visit Bariatric Surgery [address] [phone] Ricco Mathur MD Class 3 severe obesity due to excess calories with serious comorbidity and body mass index (BMI) of 40.0 to 44.9 in adult ([facility] V24, [facility] V28) (Primary Dx) 09/03/2024 Telephone Bariatric Surgery [address] [phone] Ricco Mathur MD Advice Only 07/22/2024 1:15 PM EDT Office Visit Bariatric Surgery [address] [phone] Ricco aMthur MD Class 3 severe obesity due to excess calories with serious comorbidity and body mass index (BMI) of 40.0 to 44.9 in adult ([facility] V24, [facility] V28) (Primary Dx) 07/22/2024 Telephone Bariatric Surgery - [place] 175 [facility] [address] [place] [phone] Ricco Mathur MD Prior auth (ANA) from [...] BMI of 7 0 and over, adult (CMS/[facility] V24, CMS/HCC V28) 12/03/2017 DX:Morbid obesity wit h BMI of 70 and over, adult ([facility]) Family History Medical History Relation Name Comments [...] 50 09/09/2024 8:21 AM EDT Temperature 36.6 C (97.8 F) 09/09/2024 8:21 AM EDT Respiratory Rate - - Oxygen Saturation - [...] AM EDT Office Visit Bariatric Surgery - [place] [address] [phone] Ricco Mathur MD [address] [phone] Health Maintenance Due Date Last Done Comments [...] [employer] [place] [employer] Care Teams Rn Radiation Relationship Specialty Start Date End Date Gurwinder Mclean MD [address] [place] [phone] PCP - General 06/20/18
== END 2024-09-25 13:59 | disposition home or self-care (01) ==
LOC: HO.HKAS 13:37
PROVIDERS: PCP Physician Assistant Medical; Visit Provider Internal Medicine Nephrology
DX: I10 Essential (primary) hypertension (principal); N18.31 Chronic kidney disease, stage 3a
CPT/HCPCS: 99214

== ENCOUNTER → 2024-09-25 13:30 | Outpatient (BNVA) | payer OTHER, SELFPAY | PROVIDERS: PCP Physician Assistant Medical; Visit Provider Internal Medicine Nephrology | DX: I10 Essential (primary) hypertension (principal); N18.31 Chronic kidney disease, stage 3a | CPT/HCPCS: 99212 ==

== ENCOUNTER 2025-03-25 14:19 | Outpatient (REF) | payer OTHER, SELFPAY ==
--- OUTSIDE RECORDS SUMMARY | 2025-03-25 19:09 | XMS_ITS | Clinical Summary ---
Author Organization 175 [facility] Address [address] [place] [address] Phone Care Team Providers Care Active Directory Administrator Name Role Phone Gurwinder Mclean MD Primary Care Provider [phone] Allergies Active Allergy Reactions Criticality Noted Date Comments Diphenhydramine Hcl 12/03/2017 Medications LISINOPRIL ORAL Take by mouth. Active loperamide (IMODIUM) 2 mg capsule Take 1 Capsule by mouth 4 times daily as needed for Diarrhea for up to 20 doses. 06/06/19 24 Active pantoprazole (PROTONIX) 40 mg EC tablet TAKE 1 TABLET BY MOUTH ONCE DAILY 03/09/20 23 Active cholecalciferol (VITAMIN D-3) 50 mcg (2,000 unit) tablet TAKE 1 TABLET BY MOUTH ONCE DAILY 07/18/19 23 Active WHEAT DEXTRIN ORAL Take 4 g by mouth daily. 10/27/19 23 Active buPROPion XL (WELLBUTRIN XL) 300 mg 24 hr tabletIndications :Morbid (severe) obesity due to excess calories (CMS/HCC V24, CMS/HCC V28) TAKE 1 TABLET BY MOUTH EVERY MORNING 30 tablet 5 04/03/20 24 Active acetaminophen (TYLENOL 8 HOUR) 650 mg 8 hr tablet Take 2 tablets (1,300 mg total) by mouth every 8 (eight) hours if needed. for pain 02/14/20 24 Active albuterol 2.5 mg /3 mL (0.083 %) nebulizer solution Take 3 mL (2.5 mg total) by nebulization if needed. 07/13/19 24 Active amLODIPine (NORVASC) 10 mg tablet Take 1 tablet (10 mg total) by mouth 1 (one) time each day. Active Symbicort 80-4.5 mcg/actuation inhaler Inhale 2 puffs by mouth if needed. 12/31/19 24 Active carvediloL (COREG) 25 mg tablet Take 1 tablet (25 mg total) by mouth 2 (two) times a day with meals. Active cetirizine (ZyrTEC) 10 mg tablet Take 1 tablet (10 mg total) by mouth 1 (one) time each day. 08/24/19 24 Active clonazePAM (KlonoPIN) 1 mg tablet Take 1 tablet (1 mg total) by mouth 1 (one) time each day. Max Daily Amount: 1 mg 03/18/20 24 Active docusate sodium (COLACE) 100 mg capsule Take 1 capsule (100 mg total) by mouth if needed for constipation. 02/25/20 24 Active escitalopram (LEXAPRO) 20 mg tablet Take 1 tablet (20 mg total) by mouth 1 (one) time each day in the morning. Active fluconazole (DIFLUCAN) 150 mg tablet Take 1 tablet (150 mg total) by mouth 1 (one) time. 10/23/19 24 Active hydrOXYzine HCL (ATARAX) 50 mg tablet Take 10 mg by mouth 1 (one) time. 02/22/20 24 Active hydrocortisone (ANUSOL-HC) 2.5 % rectal cream Insert 2.5 Applications into the rectum 2 (two) times a day. 07/13/19 24 Active zinc gluconate 50 mg tabletIndications :Postoperative malabsorption Take 1 tablet (50 mg total) by mouth 1 (one) time each day. 30 tablet 04/21/19 25 026 Active tirzepatide, weight loss, (Zepbound) 10 mg/0.5 mL injectionIndicati ons:Class 3 severe obesity due to excess calories with serious comorbidity and body mass index (BMI) of 40.0 to 44.9 in adult ([facility] V24, [facility]/HCC V28) Inject 0.5 mL (10 mg total) under the skin every 7 (seven) days. 2 mL 1 03/17/20 25 026 Active semaglutide (Wegovy) 0.25 mg/0.5 mL injection penIndications:Cl ass 3 severe obesity due to excess calories with serious comorbidity and body mass index (BMI) of 40.0 to 44.9 in adult ([facility] V24, [facility] V28) Inject 0.25 mg under the skin every 7 (seven) days. 4 mL 1 09/10/19 25 025 Discontin ued(Alter tatyana therapy) Active Problems Problem Noted Date Diagnosed Date NICOLAS on CPAP 01/21/2024 Depression 01/21/2024 Class 3 severe obesity due t o excess calories with body mass index (BMI) of 40.0 to 44.9 in adult 01/21/2024 Intestinal malabsorption following gastrectomy 0 12/26/2018 Anxiety 09/05/2018 Asthma 09/05/2018 Hypertension 09/05/2018 Osteoarthritis 09/05/2018 Vitamin D deficiency 09/05/2018 TSH elevation 09/05/2018 Encounters Date Type Department Care Team Description 03/17/2025 9:00 AM EST Lab Draw Station - [address] [facility] [address] [place] [phone] Hyperglycemia 03/17/2025 8:15 AM EST Office Visit Bariatric Surgery - [place] [address] [place] [phone] Ricco Mathur MD Class 3 severe obesity due to excess calories with serious comorbidity and body mass index (BMI) of 40.0 to 44.9 in adult ([facility] V24, [facility] V28) (Primary Dx); Hyperglycemia; NICOLAS on CPAP from Last 3 Months Surgical History Surgery Date Site/Laterality Comments SECTION PROCEDURE: HISTORICAL DELIVERY Medical History Medical History Date Comments NICOLAS on CPAP DX:NICOLAS on CPAP Asthma DX:Asthma Depression DX:Depression Anxiety 09/05/2018 DX:Anxiety Hypertension 09/05/2018 DX:Hypertension Osteoarthritis 09/05/2018 DX:Osteoarthriti s Vitamin D deficiency 09/05/2018 DX:Vitamin D deficiency TSH elevation 09/05/2018 DX:TSH elevation Morbid obesity with BMI of 7 0 and over, adult ([facility] V24, [facility] V28) 12/03/2017 DX:Morbid obesity wit h BMI of 70 and over, adult ([facility]) Family History Medical History Relation [...] on file Sexual Orientation Not on file Last Filed Vital Signs Vital Sign Reading Time Taken Comments Blood Pressure 118/73 03/17/2025 8:39 AM EST Pulse 64 03/17/2025 8:39 AM EST Temperature 36.6 C (97.8 F) 03/17/2025 8:39 AM EST Respiratory Rate 18 11/15/2024 5:25 PM EDT Oxygen Saturation 100% 11/15/2024 5:25 PM EDT Inhaled Oxygen Concentration - - Weight 106 kg (234 lb) 03/17/2025 8:39 AM EST Height 157.5 cm (5' 2 ) 03/17/2025 8:39 AM EST Body Mass Index 42.8 03/17/2025 8:39 AM EST Plan of Treatment Upcoming Encounters Date Type Department Care Team (Late st Contact Info) Description 10/01/2025 1:45 PM EDT Office Visit Bariatric Surgery - [address] [place] [phone] Ricco Mathur MD [address] [place] [phone] Health Maintenance Due Date Last Done Comments Breast Cancer Screening 1971 Colorectal Cancer Screening: Colonoscopy 1971 Drug Screen 1971 Non-Opioid Controlled Substance Agreement 1971 Pneumococcal Vaccine: 50+ Years (1 of 2 - PCV) 1990 Cervical Cancer Screening: Pap Smear 02/04/1992 Hepatitis B Vaccines (3 of 3 - 19+ 3-dose series) 02/10/2012 12/14/2011, 08/10/2011 RSV Immunization Adult Patients (1 - Risk 50-74 years 1-dose series) 2021 HIV Screening 03/12/2022 Hepatitis C Screening 03/12/2022 Social Influencers of Health Screening 03/12/2022 Zoster Vaccines (2 of 3) 01/30/2024 12/05/2023 Depression Screening 04/09/2024 COVID-19 Vaccine ( season) 2024 08/19/2021, 12/08/2020, 07/13/2020, Additional history exists Influenza Vaccine (#1) 2024 , 02/12/2023, 03/20/2022, Additional history exists Hypertension/CHF/CAD Annual BMP Blood Test 11/15/2025 11/15/2024, 02/20/2022 Cholesterol Screening (Lipid Panel) 02/20/2027 02/20/2022 DTaP,Tdap,and Td Vaccines (3 - Td or Tdap) 09/07/2027 09/06/2017, 08/10/2011 Hepatitis A Vaccines Aged Out 12/14/2011, 08/10/19 12 No longer eligible based on patient's age to complete this topic HIB Vaccines Aged Out No longer eligi [...] Procedure Name Priority Date/Time Associated Diagnosis Comments HEMOGLOBIN A1C Routine 03/17/2025 8:57 AM EST Hyperglycemia COMPREHENSIVE METABOLIC PANEL STAT 11/15/2024 4:53 PM EDT LIPID PANEL Routine 02/20/2022 from Last 3 Months or Most Recently Relevant to Health Maintenance Results * Hemoglobin A1c (03/17/2025 8:57 AM EST) Hemoglobin A1C 4.5 <6.5 % LAB CHEMISTRY METHOD 03/19/2025 12:45 PM EST [facility] Mean Bld Glu Estim. 82 mg/dL LAB CHEMISTRY METHOD 03/19/2025 12:45 PM EST [facility] Blood Venous blood specimen / Unknown Venipuncture / Unknown 03/17/2025 8:57 AM EST 03/17/2025 8:57 AM EST us Ricco Mathur MD LAB BLOOD ORDERABLES Final R esult [facility] [address] [place] [address], [place] [phone] * (ABNORMAL) Comprehensive Metabolic Panel (CMP) (11/15/2024 4:53 PM EDT) Sodium 140 133 - 145 mmol/L LAB CHEMISTRY METHOD 11/15/2024 5:20 PM [facility] Potassium 4.1 3.5 - 5.5 mmol/L LAB CHEMISTRY METHOD 11/15/2024 5:20 PM [facility] Chloride 107 96 - 110 mmol/L LAB CHEMISTRY METHOD 11/15/2024 5:20 PM [facility] CO2 27 21 - 32 mmol/L LAB CHEMISTRY METHOD 11/15/2024 5:20 PM [facility] Anion Gap 6 3 - 11 LAB CHEMISTRY METHOD 11/15/2024 5:20 PM [facility] Glucose 120(H) 70 - 100 mg/dL LAB CHEMISTRY METHOD 11/15/2024 5:20 PM [facility] BUN 18 5 - 25 mg/dL LAB CHEMISTRY METHOD 11/15/2024 5:20 PM [facility] Creatinine 1.59(H) 0.50 - 1.10 mg/dL LAB CHEMISTRY METHOD 11/15/2024 5:20 PM [facility] eGFR 39(L) >=60 mL/min/1. 73m2 LAB CHEMISTRY METHOD 11/15/2024 5:20 PM T [facility] Comment:Calculation based on the Chronic Kidney Disease Epidemiology Collaboration (CKD-EPI) equation refit without adjustment for race. BUN/Creatinine Ratio 11.3 LAB CHEMISTRY METHOD 11/15[facility]2024 [facility] Calcium 8.9 8.5 - 10.5 mg/dL LAB CHEMISTRY METHOD 11/15/2024 5:20 PM [facility] AST (SGOT) 13 10 - 42 unit/L LAB CHEMISTRY METHOD 11/15/2024 5:20 PM [facility] ALT (SGPT) 22 10 - 60 unit/L LAB CHEMISTRY METHOD 11/15/2024 5:20 PM [facility] Alkaline Phosphatase 160(H) 42 - 121 unit/L LAB CHEMISTRY METHOD 11/15/2024 5:20 PM [facility] Total Protein 6.9 6.0 - 8.0 g/dL LAB CHEMISTRY METHOD 11/15/2024 5:20 PM [facility] Albumin 3.4 3.2 - 5.0 g/dL LAB CHEMISTRY METHOD 11/15/2024 5:20 PM [facility] Total Bilirubin 0.2 0.0 - 1.4 mg/dL LAB CHEMISTRY METHOD 11/15/2024 5:20 PM [facility] Blood Venous blood specimen / Unknown Venipuncture / Unknown 11/15/2024 4:53 PM EDT 11/15/2024 4:58 PM EDT us Trini Vega MD LAB BLOOD ORDERABLES Final Resul t [facility] [address] [place] [address], * (ABNORMAL) Lipid panel (02/20/2022) LDL/HDL Ratio 4 0 - 4 Triglycerides 137 0 - 150 mg/dL Cholesterol 193 0 - 200 mg/dL HDL 50 >=40 mg/dL LDL Cholesterol 116(A) 0 - 100 mg/dL Blood Venous blood specimen / Unknown us Historical Provider LAB BLOOD ORDERABLES Anne l Result from Last 3 Months or Most Recently Relevant to Health Maintenance Insurance [facility] MEDICAID ADVANTAGE Care Teams Active Directory Administrator Relationship Specialty Start Date End Date Gurwinder Mclean MD [address] [place] [phone] PCP - General 06/20/18
[2025-03-25 19:41] LABS: Anion Gap 10 (12-20); Blood Urea Nitrogen 14 mg/dL (9-16); Carbon Dioxide 25 mmol/L (22-29); Chloride 110 mmol/L (96-108); Estimated Glomerular Filt Rate 50; Potassium 3.9 mmol/L (3.3-5.1); Sodium 141 mmol/L (135-145)
== END 2025-03-25 14:20 | disposition home or self-care (01) ==
LOC: HO.HKASLDS 14:19
PROVIDERS: PCP Physician Assistant Medical; Visit Provider Internal Medicine Nephrology
DX: I12.9 Hypertensive chronic kidney disease with stage 1 through stage 4 chronic kidney disease, or unspecified chronic kidney disease (principal); N18.31 Chronic kidney disease, stage 3a
CPT/HCPCS: 36415; 80051; 82565; 84520

== ENCOUNTER 2025-03-31 09:47 | Outpatient (AMB) | payer OTHER, SELFPAY ==
--- OUTSIDE RECORDS SUMMARY | 2025-03-31 10:37 | XMS_ITS | Clinical Summary ---
Author Organization [address] [facility] Address [address] [place] [address] Phone Care Team Providers Care Shipping Clerk Packing Name Role Phone Gurwinder Mclean MD Primary Care Provider [phone] Allergies Active Allergy Reactions Criticality Noted Date [...] (BMI) of 40.0 to 44.9 in adult ([facility] V24, [facility] V28) Inject 0.5 mL (10 mg total) under the skin every 7 (seven) days. 2 mL 1 03/17/20 25 026 Active semaglutide (Wegovy) 0.25 mg/0.5 mL injection penIndications:Cl ass 3 severe obesity due to excess calories with serious comorbidity and body mass index (BMI) of 40.0 to 44.9 in adult ([facility] V24, [facility] V28) Inject 0.25 mg under the skin [...] Draw Station - [address] [facility] [address] [place] [id number] Hyperglycemia 03/17/2025 8:15 AM EST Office Visit Bariatric Surgery - [place] [address] [place] [phone] Ricco Mathur MD Class 3 severe obesity due to excess calories with serious comorbidity and body mass index (BMI) of 40.0 to 44.9 in adult ([facility] V24, [facility] V28) (Primary Dx); Hyperglycemia; NICOLAS on CPAP [...] BMI of 7 0 and over, adult ([facility] V24, [facility] V28) 12/03/2017 DX:Morbid obesity wit h BMI of 70 and over, adult ([facility]) Family History Medical History Relation Name Comments [...] PM EDT Office Visit Bariatric Surgery - [address] [place] [address] Ricco Mathur MD [address] [place] [phone] Health Maintenance Due Date Last Done [...] LAB CHEMISTRY METHOD 03/19/2025 12:45 PM EST [facility] Mean Bld Glu Estim. 82 mg/dL LAB CHEMISTRY METHOD 03/19/2025 12:45 PM EST [facility] Blood Venous blood specimen / Unknown Venipuncture / Unknown 03/17/2025 8:57 AM EST 03/17/2025 8:57 AM EST us Ricco Mathur MD LAB BLOOD ORDERABLES Final R esult [facility] [address] [place] [address], [place] [phone] * (ABNORMAL) Comprehensive Metabolic Panel (CMP) (11/15/2024 4:53 PM EDT) Sodium 140 133 - 145 mmol/L LAB CHEMISTRY METHOD 11/15/2024 5:20 PM [facility] Potassium 4.1 3.5 - 5.5 mmol/L LAB CHEMISTRY METHOD 11/15/2024 5:20 PM [facility] Chloride 107 96 - 110 mmol/L LAB CHEMISTRY METHOD 11/15/2024 5:20 PM [facility] CO2 27 21 - 32 mmol/L LAB CHEMISTRY METHOD 11/15/2024 5:20 PM [facility] Anion Gap 6 3 - 11 LAB CHEMISTRY METHOD 11/15/2024 5:20 PM [facility] Glucose 120(H) 70 - 100 mg/dL LAB CHEMISTRY METHOD 11/15/2024 5:20 PM [facility] BUN 18 5 - 25 mg/dL LAB CHEMISTRY METHOD 11/15/2024 5:20 PM [facility] Creatinine 1.59(H) 0.50 - 1.10 mg/dL LAB CHEMISTRY METHOD 11/15/2024 5:20 PM [facility] eGFR 39(L) >=60 mL/min/1. 73m2 LAB CHEMISTRY METHOD 11/15/2024 5:20 PM T [facility] Comment:Calculation based on the Chronic Kidney Disease Epidemiology Collaboration (CKD-EPI) equation refit without adjustment for race. BUN/Creatinine Ratio 11.3 LAB CHEMISTRY METHOD [facility] Calcium 8.9 8.5 - 10.5 mg/dL LAB CHEMISTRY METHOD 11/15/2024 5:20 PM [facility] AST (SGOT) 13 10 - 42 unit/L LAB CHEMISTRY METHOD 11/15/2024 5:20 PM [facility] ALT (SGPT) 22 10 - 60 unit/L LAB CHEMISTRY METHOD 11/15/2024 5:20 PM [facility] Alkaline Phosphatase 160(H) 42 - 121 unit/L LAB CHEMISTRY METHOD 11/15/2024 5:20 PM [facility] Total Protein 6.9 6.0 - 8.0 g/dL LAB CHEMISTRY METHOD 11/15/2024 5:20 PM [facility] Albumin 3.4 3.2 - 5.0 g/dL LAB CHEMISTRY METHOD 11/15/2024 5:20 PM [facility] Total Bilirubin 0.2 0.0 - 1.4 mg/dL LAB CHEMISTRY METHOD 11/15/2024 5:20 PM [facility] Blood Venous blood specimen / Unknown Venipuncture / Unknown 11/15/2024 4:53 PM EDT 11/15/2024 4:58 PM EDT us Trini Vega MD LAB BLOOD ORDERABLES Final Resul t [facility] [address] [place] [address], * (ABNORMAL) Lipid panel (02/20/2022) LDL/HDL Ratio 4 0 - 4 Triglycerides 137 0 - 150 mg/dL Cholesterol 193 0 - 200 mg/dL HDL 50 >=40 mg/dL LDL Cholesterol 116(A) 0 - 100 mg/dL Blood Venous blood specimen / Unknown us Historical Provider LAB BLOOD ORDERABLES Anne l Result from Last 3 Months or Most Recently Relevant to Health Maintenance Insurance [facility] MEDICAID ADVANTAGE Care Teams Shipping Clerk Packing Relationship Specialty Start Date End Date Gurwinder Mclean MD [address] [place] [phone] PCP - General 06/20/18
[2025-03-31 10:45] VITALS: BP 100/64; PULSE 66; O2SAT 98; BMI 43.0
--- NOTE | 2025-03-31 10:45 | HO.NEPHOV_ITS ---
Vital Signs 03/31/25 10:45 Height 5 ft 2 in Weight 235 lb BMI 43.0 BP 100/64 Blood Pressure Location Lt radial Position Sitting Pulse 66 Pulse Source Pulse Oximeter Pulse Oximetry (%) 98 Oxygen Delivery Method Room Air Intake Visit Reasons: 6 mo follow up-Conf Ice Cream Freezer Assistant Required: Yes Ice Cream Freezer Assistant Name: Tyrel [id number] Accompanied by: Self / Same As Patient Allergies diphenhydramine (Benadryl) Allergy (Unknown, Verified 03/31/25 10:47) SOB From BENADRYL Adverse Reaction (Severe, Uncoded 05/15/23 10:18) AGITATION HPI Comments Details: Diana was seen in follow up of for her CKD. She has obesity and had undergone to interventions. She is not a diabetic but hypertensive. She has lost tremendous amount of weight. Her serum creatinine was 0.9 in August 2021. It had gone up to 1.2 in March 2022. In January of 2023 it went up to 2.4 and the following month it was 3.0 which has improved to 1.3 and is stable. Her urine output apparently is normal. She has no hematuria, flank pain or nephrolithiasis. She has no dizziness, chest pain, shortness of breath, proximal nocturnal dyspnea, orthopnea, pedal edema, nausea or vomiting. She used to take nonsteroidal anti-inflammatory medications but has not taken any over the last 6 months. She denies coronary artery disease, congestive heart failure, carotid stenosis, CVA, CINDY or PAD. She has no new skin rashes, photosensitivity, epistaxis, hematemesis or melena. She has been started on Zepbound. She feels well. [facility] Medical History (Updated 07/03/23 @ 11:30 by Wesley Sterling MD) Sleep related hypoxia Severe obesity Seasonal allergies Obstructive sleep apnea Hypertension Depression Chronic osteoarthritis Anxiety Surgical History H/O section History of tubal ligation Family History Mother Hypertension Osteoporosis Maternal Grandfather Prostate cancer Social History Alcohol intake: never Patient Tobacco Use Status: Never used Tobacco Review of Systems Const All systems reviewed & are unremarkable except as noted in HPI and below Physical Exam Vital Signs: Last Vital Signs Pulse 66 03/31/25 10:45 BP 100/64 03/31/25 10:45 Pulse Ox 98 03/31/25 10:45 Oxygen Delivery Method Room Air 03/31/25 10:45 BMI result Body Mass Index 43.0 Const General: comfortable and no acute distress Orientation/consciousness: patient oriented x3 HEENT Head: Yes normocephalic Mouth: Normal oral and palatal mucosa present Eyes EOM: EOMs intact bilaterally Neck Neck: Yes supple Resp Auscultation: clear to auscultation bilaterally Cardio Jugular venous distension: no JVD Rate: regular rate GI Palpation (GI): Soft to palpation Auscultation: normal bowel sounds General: Yes no CVA tenderness Back/Spine/Pelvis Back: no CVA tenderness Skin General skin exam: no rashes or lesions noted Neuro General: patient oriented x3 and moves all extremities Extrem General: Yes no pedal edema Results Reviewed Nephrology Results: Sodium, (135-145) 141 mmol/L 03/25/25 Potassium, (3.3-5.1) 3.9 mmol/L 03/25/25 Chloride, (96-108) 110 mmol/L H 03/25/25 Carbon Dioxide, (22-29) 25 mmol/L 03/25/25 BUN, (9-16) 14 mg/dL 03/25/25 Creatinine, (0.5-1.4) 1.13 mg/dL 03/25/25 Calcium, (8.4-10.2) 9.8 mg/dL 09/26/23 Phosphorus, (2.7-4.5) 3.4 mg/dL 09/26/23 Urine Creatinine 224.66 mg/dL 09/26/23 Protein/Creatinin Ratio, (<0.2) 0.06 09/26/23 Renal US 03/20/23 Assessment & Plan Assessment & Plan (1) Hypertension: Code(s): I10 - Essential (primary) hypertension Category: Medical Qualifiers: Hypertension type: primary hypertension Qualified Code(s): I10 - Essential (primary) hypertension (2) CKD (chronic kidney disease) stage 3, GFR 30-59 ml/min: Code(s): N18.30 - Chronic kidney disease, stage 3 unspecified Category: Medical Qualifiers: Chronic kidney disease stage 3 subtype: stage 3a (GFR 45-59) Qualified Code(s): N18.31 - Chronic kidney disease, stage 3a Plan Her renal functions are stable. Even though she is on Topamax, she denies nephrolithiasis. She denies any other systemic symptoms. Her renal ultrasound was unremarkable. Her BP is at goal. She has stopped BP medications since she is losing weight. I did not make any other medication changes today. Ice Cream Freezer Assistant services were used. All her questions and concerns were addressed. Follow-up given Orders: Orders Protein Creatinine Ratio, Ur 6 Months I10 - Essential (primary) hypertension, N18.31 - Chronic kidney disease, stage 3a Electrolytes 6 Months I10 - Essential (primary) hypertension, N18.31 - Chronic kidney disease, stage 3a Blood Urea Nitrogen 6 Months I10 - Essential (primary) hypertension, N18.31 - Chronic kidney disease, stage 3a Creatinine 6 Months I10 - Essential (primary) hypertension, N18.31 - Chronic kidney disease, stage 3a Coding Level of Care Code Est Pt Level 4 (19604) Diagnoses Primary hypertension I10 Hypertension type: primary hypertension Stage 3a chronic kidney disease N18.31 Chronic kidney disease stage 3 subtype: stage 3a (GFR 45-59)
== END 2025-03-31 11:09 | disposition home or self-care (01) ==
LOC: HO.HKAS 09:48
PROVIDERS: PCP Physician Assistant Medical; Visit Provider Internal Medicine Nephrology
DX: I10 Essential (primary) hypertension (principal); N18.31 Chronic kidney disease, stage 3a
CPT/HCPCS: 99214

== ENCOUNTER → 2025-03-31 09:47 | Outpatient (BNVA) | payer OTHER, SELFPAY | PROVIDERS: PCP Physician Assistant Medical; Visit Provider Internal Medicine Nephrology | DX: I12.9 Hypertensive chronic kidney disease with stage 1 through stage 4 chronic kidney disease, or unspecified chronic kidney disease (principal); N18.31 Chronic kidney disease, stage 3a; Z79.899 Other long term (current) drug therapy | CPT/HCPCS: 99212 ==